=== PATIENT | male | born 1950 | race Caucasian/White ===

== ENCOUNTER 2020-08-25 06:50 | Observation (INO) | payer MEDICARE, OTHER ==
[~2020-08-25] VITALS: Ht 180.3 cm; Wt 98.1 kg
[2020-08-25] MEDS ORDERED: NS IV 1000 ML 1,000 ML IV SCH (07:03)
[2020-08-25] MEDS ORDERED: ANTACID SUSP 30 ML UDC (MYLANTA) PO STA (07:09)
[2020-08-25] MEDS ORDERED: LIDOCAINE 2% VISCOUS 15 ML UDC PO STA (07:09)
[2020-08-25] MEDS ORDERED: PANTOPRAZOLE 40 MG (PROTONIX) VIAL IV STA (07:09)
[2020-08-25] MEDS ORDERED: ONDANSETRON 4 MG/2 ML (SDV) Z0FRAN IV ONE (07:15)
[2020-08-25 07:20] LABS: HEMATOCRIT 44 % (40-54); HEMOGLOBIN 14.6 G/DL (13.3-17.7); MEAN CORPUSCULAR HEMOGLOBIN 31 PG (25-34); MEAN CORPUSCULAR HGB CONC 33 G/DL (32-36); MEAN CORPUSCULAR VOLUME 92 FL (80-99); MEAN PLATELET VOLUME 10.8 FL (7.4-10.4); NEUTROPHILS % (AUTO) 67 % (42-75); PLATELET COUNT 220 10^3/uL (130-400); WHITE BLOOD COUNT 6.2 10^3/uL (4.3-11.0)
[2020-08-25 07:21] LABS: BASOPHILS % (AUTO) 0 % (0-10); EOSINOPHILS % (AUTO) 0 % (0-10); LYMPHOCYTES # (AUTO) 1.5 X 10^3 (1.0-4.0); LYMPHOCYTES % (AUTO) 24 % (12-44); MONOCYTES # (AUTO) 0.5 X 10^3 (0.0-1.0); MONOCYTES % (AUTO) 9 % (0-12); NEUTROPHILS # (AUTO) 4.2 X 10^3 (1.8-7.8)
--- NOTE | 2020-08-25 07:25 | ED General ---
General Chief Complaint: Abdominal/GI Problems Stated Complaint: FEVER Nursing Triage Note: Patient is brought in via EMS for epigastric burning and a sour taste in his mouth. Patient states that his is Covid 19 positive. Patient does have some symptoms but has no acute complaints with those. Nursing Sepsis Screen: No Definite Risk Source of Information: Patient, EMS History of Present Illness Date Seen by Provider: Aug 25, 2020 Time Seen by Provider: 06:50 Initial Comments 70-year-old male presenting by EMS with complaints of mild shortness of breath, epigastric burning that has been intermittent and a sour taste in his mouth. He states that this is been going on for over a week now. His was just admitted to the hospital in [place] last night for Covid-19. This morning he felt like he was doing a little worse and was not improving so he called EMS. He follows with Dr. Rios out of [place]. He has a history of diabetes and hy pertension. He has had a mild cough and is more short of breath with exertion. He has had subjective fever and chills. He reports that he has not been eating and drinking as well because of feeling so poorly Allergies and Home Medications Allergies Coded Allergies: No Known Drug Allergies (Unverified , 08/25/20) Patient Home Medication List Home Medication List Reviewed: Yes Review of Systems Review of Systems Constitutional: chills, fever (subjective), malaise, weakness (generalized) EENTM: nose congestion (mild); No ear pain, No epistaxis Respiratory: cough (mild), dyspnea on exertion, short of breath (mild) Cardiovascular: No chest pain, No palpitations Gastrointestinal: abdominal pain (burning epigastric pain that is intermittent); No constipation, No diarrhea; nausea; No vomiting Genitourinary: No dysuria; other (decreased urine output) Musculoskeletal: other (generalized muscle aching) Skin: No rash Psychiatric/Neurological: Denies Numbness, Denies Paresthesia Hematologic/Lymphatic: No Symptoms Reported Immunological/Allergic: no symptoms reported Past Nwvrvpr-Xbmnxu-Jckxdf Hx Past Med/Social Hx: Reviewed Nursing Past Med/Soc Hx Patient Social History Alcohol Use: Denies Use Recreational Drug Use: No Smoking Status: Never a Smoker Recent Foreign Travel: No Contact w/Someone Who Travel: No Recent Infectious Disease Expo: No Physical Abuse: No Sexual Abuse: No Mistreated: No Fear: No Past Medical History Surgeries: Yes Orthopedic Respiratory: No Cardiac: Yes Hypertension Neurological: No Genitourinary: No Gastrointestinal: No Musculoskeletal: No Endocrine: Yes Diabetes, Insulin dep HEENT: No Cancer: No Psychosocial: No Integumentary: No Physical Exam Vital Signs Vital Signs - First Documented 08/25/20 08/25/20 06:50 09:55 Temp 36.9 Pulse 73 Resp 15 B/P (MAP) 179/74 (109) Pulse Ox 96 O2 Delivery Room Air O2 Flow Rate 2.00 Capillary Refill : Less Than 3 Seconds Height, Weight, BMI Height: '" Weight: lbs. oz. kg; 30.00 BMI Method: General Appearance: WD/WN, Mild Distress HEENT: PERRL/EOMI; No Moist Mucous Membranes (slightly dry mucous membranes) Neck: Full Range of Motion, Normal Inspection, Non Tender, Supple Respiratory: Chest Non Tender, No Accessory Muscle Use, No Respiratory Distress, Decreased Breath Sounds, Rhonci (in the bases) Cardiovascular: Regular Rate, Rhythm, No Edema, Normal Peripheral Pulses Gastrointestinal: Normal Bowel Sounds, No Pulsatile Mass, Non Tender, Soft Rectal: Deferred Back: Normal Inspection, No CVA Tenderness Extremity: Normal Capillary Refill, Normal Range of Motion, Non Tender, No Pedal Edema Neurologic/Psychiatric: Alert, Oriented x3, No Motor/Sensory Deficits, 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 II- 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 Norm as Tested Skin: Normal Color, Warm/Dry Focused Exam Lactate Level 08/25/20 06:55: Lactic Acid Level 1.53 Lactic Acid Level Laboratory Tests Test 08/25/20 06:55 Lactic Acid Level 1.53 MMOL/L (0.50-2.00) Progress/Results/Core Measures Suspected Sepsis Recent Fever Within 48 Hours: No Infection Criteria Present: None New/Unexplained Altered Menta: No Sepsis Screen: No Definite Risk SIRS Temperature: Pulse: 73 Respiratory Rate: 15 Laboratory Tests 08/25/20 06:55: White Blood Count 6.2 Blood Pressure 179 /74 Mean: 109 08/25/20 06:55: Lactic Acid Level 1.53 Laboratory Tests 08/25/20 06:55: Creatinine 1.02, INR Comment 1.0, Platelet Count 220, Total Bilirubin 0.5 Results/Orders Lab Results Laboratory Tests Test 08/25/20 06:55 08/25/20 07:35 10/9/20 09:50 Range/Units White Blood Count 6.2 4.3-11.0 10^3/uL Red Blood Count 4.76 4.35-5.85 10^6/uL Hemoglobin 14.6 13.3-17.7 G/DL Hematocrit 44 40-54 % Mean Corpuscular Volume 92 80-99 FL Mean Corpuscular Hemoglobin 31 25-34 PG Mean Corpuscular Hemoglobin Concent 33 32-36 G/DL Red Cell Distribution Width 13.2 10.0-14.5 % Platelet Count 220 130-400 10^3/uL Mean Platelet Volume 10.8 H 7.4-10.4 FL Immature Granulocyte % (Auto) 0 % Neutrophils (%) (Auto) 67 42-75 % Lymphocytes (%) (Auto) 24 12-44 % Monocytes (%) (Auto) 9 0-12 % Eosinophils (%) (Auto) 0 0-10 % Basophils (%) (Auto) 0 0-10 % Neutrophils # (Auto) 4.2 1.8-7.8 X 10^3 Lymphocytes # (Auto) 1.5 1.0-4.0 X 10^3 Monocytes # (Auto) 0.5 0.0-1.0 X 10^3 Eosinophils # (Auto) 0.0 0.0-0.3 10^3/uL Basophils # (Auto) 0.0 0.0-0.1 10^3/uL Immature Granulocyte # (Auto) 0.0 0.0-0.1 10^3/uL Prothrombin Time 13.7 12.2-14.7 SEC INR Comment 1.0 0.8-1.4 Activated Partial Thromboplast Time 34 24-35 SEC Sodium Level 134 L 135-145 MMOL/L Potassium Level 4.5 3.6-5.0 MMOL/L Chloride Level 98 98-107 MMOL/L Carbon Dioxide Level 24 21-32 MMOL/L Anion Gap 12 5-14 MMOL/L Blood Urea Nitrogen 19 H 7-18 MG/DL Creatinine 1.02 0.60-1.30 MG/DL Estimat Glomerular Filtration Rate > 60 BUN/Creatinine Ratio 19 Glucose Level 269 H 70-105 MG/DL Lactic Acid Level 1.53 0.50-2.00 MMOL/L Calcium Level 9.1 8.5-10.1 MG/DL Corrected Calcium 9.3 8.5-10.1 MG/DL Total Bilirubin 0.5 0.1-1.0 MG/DL Aspartate Amino Transf (AST/SGOT) 31 5-34 U/L Alanine Aminotransferase (ALT/SGPT) 20 0-55 U/L Alkaline Phosphatase 92 40-136 U/L Troponin I < 0.30 <0.30 NG/ML C-Reactive Protein 0.97 H <0.50 MG/DL Pro-B-Type Natriuretic Peptide 133.1 H <75.0 PG/ML Total Protein 7.2 6.4-8.2 GM/DL Albumin 3.7 3.2-4.5 GM/DL Lipase 25 8-78 U/L Blood Gas Puncture Site RT RAD Blood Gas Patient Temperature 36.8 Arterial Blood pH 7.52 H 7.37-7.43 Arterial Blood Partial Pressure CO2 32 L 35-45 MMHG Arterial Blood Partial Pressure O2 64 L 79-93 MMHG Arterial Blood HCO3 26 23-27 MMOL/L Arterial Blood Total CO2 27.1 21.0-31.0 MMOL/L Arterial Blood Oxygen Saturation 94 94-100 % Arterial Blood Base Excess 3.6 H -2.5-2.5 MMOL/L Shad Test YES-POS Blood Gas Ventilator Setting NO Blood Gas Inspired Oxygen ROOM AIR Glucometer 175 H 70-110 MG/DL Micro Results Microbiology 08/25/20 Influenza Types A,B Antigen (MITRA) - Final, Complete My Orders Orders - MARGAUX MCDANIEL MD Vital Signs: Hourly (Order) (08/25/20 07:03) Monitor-Rhythm Ecg Trace Only (08/25/20 07:03) Ed Iv/Invasive Line Start (08/25/20 07:03) Cbc With Automated Diff (08/25/20 07:03) Comprehensive Metabolic Panel (08/25/20 07:03) Crp Fs (08/25/20 07:03) Troponin I Fs (08/25/20 07:03) Protime With Inr (08/25/20 07:03) Partial Thromboplastin Time (08/25/20 07:03) Ekg Tracing (08/25/20 07:03) Arterial Blood Gas (08/25/20 07:03) Ns Iv 1000 Ml (Sodium Chloride 0.9%) (08/25/20 07:03) Ondansetron Injection (Zofran Injectio (08/25/20 07:15) Oxygen Delivery Set Up (08/25/20 07:03) Oxygen-Administer DAILY (08/25/20 07:03) Blood Culture (08/25/20 07:03) Lipase (08/25/20 07:03) Probnp Fs (08/25/20 07:03) Lactic Acid Analyzer (08/25/20 07:03) Chest 1 View Ap/Pa Only (08/25/20 07:08) Pantoprazole Injection (Protonix Injecti (08/25/20 07:09) Lidocaine 2% Viscous 15 Ml (Xylocaine Vi (08/25/20 07:09) Antacid Suspension (Mylanta Suspension (08/25/20 07:09) Influenza A And B Antigens (08/25/20 07:12) Ua Culture If Indicated (08/25/20 08:06) Dexamethasone Oral Soln (Ed) (Decadron I (08/25/20 08:35) Insulin (Regular) Human (Novolin R (Per (08/25/20 08:35) Ns Iv 1000 Ml (Sodium Chloride 0.9%) (08/25/20 09:08) Medications Given in ED Current Medications Medications Dose Ordered Sig/Jaimee Route Start Time Stop Time Status Last Admin Dose Admin Ondansetron HCl 4 mg ONCE ONCE IV 08/25/20 07:15 08/25/20 07:16 DC 08/25/20 07:48 4 MG Vital Signs/I&O 08/25/20 08/25/20 06:50 09:55 Temp 36.9 36.9 Pulse 73 78 Resp 15 18 B/P (MAP) 179/74 (109) 175/70 Pulse Ox 96 97 O2 Delivery Room Air Nasal Cannula O2 Flow Rate 2.00 Capillary Refill : Less Than 3 Seconds Blood Pressure Mean: 109 Progress Note #1: Progress Note Obtain labs, chest x-ray, flu swab, blood cultures and lactic acid. With his exposure to his having COVID will obtain the flu swab and COVID swab to evaluate for that. Since his room air oxygen saturation has fluctuated between 92 and 96% will obtain a blood gas to evaluate his oxygenation. Since he also has intermittent burning in his epigastric area and Sour taste in his mouth will try medication for possible reflux and acid indigestion. However with his diabetes and hypertension will obtain electrocardiogram and cardiac enzymes. He states he has not been drinking much fluids so will give IVF for hydration. Progress Note #2: Time: 08:17 Progress Note Labs show stable CBC. His chemistry shows elevation of his glucose. He does have an elevated CRP. His troponin was negative. His BUN was slightly elevated to 19. He does have a normal lipase and lactic acid. His ABG shows mild alkalosis of 7.53. His PCO2 was slightly low at 69. His chest x-ray was showing some infiltrate in the base of his lungs. On room air his O2 saturation does fluctuate from 92-96%. With his exposure to COVID with his being positive and daughter being positive, he likely is positive as well and contributing to his symptoms. 0828 d/w Dr. Dalton for hospitalist service since pt follows with Dr. Rios from [place]. Will give Decadron 6 mg po and a dose of insulin to help with his already elevated glucose. will give additional IVF since he has already had 1 L and not been able to provide a UA. ECG Initial ECG Impression Date: Aug 25, 2020 Initial ECG Impression Time: 07:23 Initial ECG Rate: 62 Initial ECG Rhythm: Normal Sinus Initial ECG Comparisson: No Previous ECG Available Comment Normal sinus rhythm with a heart rate of 62 bpm. There are atrial premature complexes. MO interval [address] elevation. No prior tracings for comparison. QT interval 420 ms with a QTc interval 427 ms. There is a left axis deviation. Diagnostic Imaging Diagonstic Imaging: Xray Plain Films/CT/US/NM/MRI: chest Comments [facility]. [place], [place] NAME: ANNA SMART [facility] REC#: [id number] PT STATUS: REG ER : 1950 PHYSICIAN: MARGAUX MCDANIEL MD ADMIT DATE: 08/25/20/ER FS Draft Date of Exam:08/25/20 CHEST 1 VIEW AP/PA ONLY CHEST 1 VIEW AP/PA ONLY INDICATION: Shortness of breath, exposure to Covid-19. COMPARISON: None available. FINDINGS: Right basilar hazy opacities are present. No consolidation. No pleural effusion or pneumothorax. Normal cardiomediastinal silhouette. IMPRESSION: 1. Right basilar ill-defined hazy opacities could be due to atelectasis or summation shadow. Alternatively, airspace disease from infection could also give this appearance. Dictated on workstation # [id number] Dict: 08/25/20725 Trans: 08/25/2035 [id number] Interpreted by: WILLARD COOK MD Electronically signed by: Departure Communication (Admissions) Time/Spoke to Admitting Phy: 08:28 d/w Dr. Dalton and will observation admit pt for COVID-19 symptoms and borderline dehydration. Will give Decadron 6 mg here and some insulin for his elevated glucose. Impression Primary Impression: Right lower lobe pulmonary infiltrate Additional Impressions: Dehydration Hyperglycemia due to type 1 diabetes mellitus Close exposure to COVID-19 virus Disposition: ADMITTED INPATIENT Condition: Stable Admissions Decision to Admit Reason: Admit from ER (General) Decision to Admit/Date: Aug 25, 2020 Time/Decision to Admit Time: 08:28 MARGAUX MCDANIEL MD Aug 25, 2020 07:25
[2020-08-25 07:30] LABS: PROTHROMBIN TIME PATIENT 13.7 SEC (12.2-14.7)
--- NOTE | 2020-08-25 07:36 | Diagnostic Imaging Report ---
CHEST 1 VIEW AP/PA ONLY INDICATION: Shortness of breath, exposure to Covid-19. COMPARISON: None available. FINDINGS: Right basilar hazy opacities are present. No consolidation. No pleural effusion or pneumothorax. Normal cardiomediastinal silhouette. IMPRESSION: 1. Right basilar ill-defined hazy opacities could be due to atelectasis or summation shadow. Alternatively, airspace disease from infection could also give this appearance. Dictated by: Dictated on workstation # [id number]
[2020-08-25 07:42] LABS: ABG BASE EXCESS 3.6 MMOL/L (-2.5-2.5); ABG PCO2 32 MMHG (35-45); ABG PH 7.52 (7.37-7.43); ABG PO2 64 MMHG (79-93); ABG TCO2 27.1 MMOL/L (21.0-31.0)
[2020-08-25 07:43] LABS: ABG OXYGEN SATURATION 94 % (94-100); ALLENS TEST YES-POS; INSPIRED O2 ROOM AIR; PATIENT TEMP 36.8; VENTILATOR NO
[2020-08-25 07:44] LABS: BUN/CREATININE RATIO 19; CARBON DIOXIDE 24 MMOL/L (21-32); CHLORIDE 98 MMOL/L (98-107); CREATININE SERUM 1.02 MG/DL (0.60-1.30); GFR ESTIMATED > 60; POTASSIUM 4.5 MMOL/L (3.6-5.0); SODIUM 134 MMOL/L (135-145)
[2020-08-25 07:45] LABS: ALANINE AMINOTRANSFERASE 20 U/L (0-55); ALBUMIN 3.7 GM/DL (3.2-4.5); ALKALINE PHOSPHATASE 92 U/L (40-136); BILIRUBIN,TOTAL 0.5 MG/DL (0.1-1.0); CALCIUM 9.1 MG/DL (8.5-10.1); GLUCOSE 269 MG/DL (70-105); TOTAL PROTEIN 7.2 GM/DL (6.4-8.2)
[2020-08-25] MEDS ORDERED: inSUlin (REGULAR) HUMAN 1 UNIT/0.01 ML (CHARGE PER UNIT) SC STA (08:35)
[2020-08-25] MEDS ORDERED: NS IV 1000 ML 1,000 ML IV STA (09:08)
[2020-08-25 11:00] VITALS: BP 190/82
[2020-08-25] MEDS: NS IV 1000 ML 1,000 ML IV SCH ×2 (11:30→19:29)
[2020-08-25] MEDS ORDERED: FLU QUAD HIGH DOSE 240 MCG/0.7 ML 2020-21 (FLUZONE) IM ONE (11:45)
[2020-08-25 11:56] VITALS: BP 190/82
[2020-08-25] MEDS ORDERED: ENOXAPARIN 40 MG/0.4 ML (LOVENOX) SYR SC SCH ×2 (12:00→16:00)
[2020-08-25] MEDS ORDERED: guaiFENesin SYRUP 100 MG/5 ML 10 ML (ROBITUSSIN SF) PO PRN (12:00)
[2020-08-25] MEDS ORDERED: ACETAMINOPHEN 325 MG TABLET PO PRN ×2 (12:00→16:00)
[2020-08-25 15:02] VITALS: BP 179/74
--- NOTE | 2020-08-25 15:44 | History & Physical-Hospitalist ---
History of Present Illness HPI/Chief Complaint Pt is a 70yoCM with a PMH of IDDMII who presented to the ER due to abdominal pain, weakness, and mild shortness of breath. He has been sick for a week and his was just admitted to the ER due to COVID and he is very anxious about this and even tearful. He states he doesn't think he has had a fever but he has been feeling very warm and sweaty lately. He thought he was worsening this morning in his ability to get around due to weakness so called EMS to bring him to the ER for evaluation. He reports that he was able to eat lunch since getting up here and it already feeling better though. Source: patient Date Seen 08/25/20 Time Seen by a Provider: 15:37 Attending Physician Milli Dalton MD PCP Referring Physician Date of Admission Aug 25, 2020 at 10:46 Home Medications & Allergies Home Medications Reviewed patient Home Medication Reconciliation performed by pharmacy medication reconciliations automation technician and/or nursing. Patients Allergies have been reviewed. Allergies Allergies Coded Allergies No Known Drug Allergies (Dfjxddnzcv59/9/20) Past Anuryka-Toyghh-Iluctv Hx Past Med/Social Hx: Reviewed Nursing Past Med/Soc Hx Patient Social History Alcohol Use: Denies Use Recreational Drug Use: No Smoking Status: Never a Smoker Recent Foreign Travel: No Contact w/other who traveled: No Recent Infectious Disease Expo: No Immunizations Up To Date Date of Pneumonia Vaccine: Aug 25, 2017 Date of Influenza Vaccine: Aug 25, 2019 Past Medical History Surgeries: Orthopedic Cardiac: Hypertension Endocrine: Diabetes, Insulin dep Family History Diabetes mellitus 19 FATHER 19 MOTHER Stomach cance 19 FATHER Review of Systems Constitutional: fever, malaise, weakness EENTM: No hoarseness, No nose congestion Respiratory: No cough; dyspnea on exertion, short of breath Cardiovascular: No chest pain, No palpitations Gastrointestinal: abdominal pain, nausea Genitourinary: No dysuria, No frequency Musculoskeletal: muscle weakness Skin: no symptoms reported Psychiatric/Neurological: No Symptoms Reported Physical Exam Physical Exam Vital Signs Vital Signs - First Documented 08/25/20 08/25/20 08/25/20 06:50 09:55 15:02 Temp 36.9 Pulse 73 Resp 15 B/P (MAP) 179/74 (109) Pulse Ox 96 O2 Delivery Room Air O2 Flow Rate 2.00 FiO2 21 Capillary Refill : Less Than 3 Seconds Height, Weight, BMI Height: '" Weight: lbs. oz. kg; 30.17 BMI Method: General Appearance: No Apparent Distress, WD/WN, Anxious HEENT: PERRL/EOMI, Moist Mucous Membranes; No Scleral Icterus (L), No Scleral Icterus (R) Neck: Normal Inspection, Supple Respiratory: Lungs Clear, No Accessory Muscle Use, No Respiratory Distress Cardiovascular: Regular Rate, Rhythm, No Murmur Gastrointestinal: Normal Bowel Sounds, Non Tender, Soft Extremity: Normal Capillary Refill, No Calf Tenderness, No Pedal Edema Neurologic/Psychiatric: Alert, Oriented x3, Normal Mood/Affect, Other (appropriately tearful) Skin: Normal Color, Warm/Dry Results Results/Procedures Labs Laboratory Tests 08/25/20 06:55 Patient resulted labs reviewed. Imaging: Reviewed Imaging Report [facility] [place] [place] NAME: ANNA SMART [facility] REC#: [id number] PT STATUS: REG ER : 1950 PHYSICIAN: MARGAUX MCDANIEL MD ADMIT DATE: 08/25/20/ER FS Signed Date of Exam:08/25/20 CHEST 1 VIEW AP/PA ONLY CHEST 1 VIEW AP/PA ONLY INDICATION: Shortness of breath, exposure to Covid-19. COMPARISON: None available. FINDINGS: Right basilar hazy opacities are present. No consolidation. No pleural effusion or pneumothorax. Normal cardiomediastinal silhouette. IMPRESSION: 1. Right basilar ill-defined hazy opacities could be due to atelectasis or summation shadow. Alternatively, airspace disease from infection could also give this appearance. Dictated by: Dictated on workstation # [id number] Dict: 08/25/20725 Trans: 08/25/2044 [id number] Interpreted by: WILLARD COOK MD Electronically signed by: WILLARD COOK MD 08/25/2044 Assessment/Plan Admission Diagnosis COVID19 Admission Status: Observation Assessment and Plan COVID19 generalized weakness IVF Decadron Discussed EUA meds and he would like to wait until tomorrow to see how he is doing MAT protocol IS Unsure of true oxygen need, wean as able IDDMI Reports he states 72U Tresiba in the AM Sliding scale B for prandial DVT ppx: Lovenox Diagnosis/Problems Diagnosis/Problems (1) Right lower lobe pulmonary infiltrate Status: Acute (2) Hyperglycemia due to type 1 diabetes mellitus Status: Acute (3) Hypertension Clinical Quality Measures DVT/VTE Risk/Contraindication: Risk Factor Score Per Nursin RFS Level Per Nursing on Admit: 1=Low/No VTE PPX MILLI DALTON MD Aug 25, 2020 15:44
[2020-08-25 16:00] VITALS: BP 163/77
[2020-08-25] MEDS ORDERED: MILK OF MAGNESIA 400 MG/5 ML 30 ML UDC PO PRN (16:00)
[2020-08-25] MEDS ORDERED: ANTACID SUSP 30 ML UDC (MYLANTA) PO PRN (16:00)
[2020-08-25] MEDS ORDERED: ONDANSETRON 4 MG/2 ML (SDV) Z0FRAN IV PRN (16:00)
[2020-08-25] MEDS ORDERED: BENZONATATE 100 MG (TESSALON) CAPSULE PO PRN (16:00)
[2020-08-25] MEDS ORDERED: MELATONIN 3 MG TABLET PO PRN (16:00)
--- NOTE | 2020-08-25 16:19 | NUR ---
I received request that this pt wanted a prayer said over phone for his (pt in ICU, 4). PCT took phone into room on speaker and this Health Program Specialist said pray for pt and her and family.
[2020-08-25] MEDS: inSUlin ASPART (NovoLOG) 1 UNIT/0.01 ML (CHARGE PER UNIT) SC SCH ×2 (17:04→20:40)
[2020-08-25] MEDS ORDERED: RT-ALBUTEROL INHALER HFA (VENTOLIN HFA) 18 GM IH SCH (18:00)
[2020-08-25 19:45] VITALS: BP 167/74
[2020-08-25] MEDS ORDERED: LISI10TA2 PO ×2 (21:40)
[2020-08-25] MEDS ORDERED: ASPI-1238 PO ×2 (21:40)
[2020-08-25] MEDS ORDERED: ALLO300T2 PO ×2 (21:41)
[2020-08-25] MEDS ORDERED: INSU100V37 SQ ×2 (21:42)
[2020-08-25] MEDS ORDERED: INSU100V16 SQ ×2 (21:45)
--- NOTE | 2020-08-25 21:58 | NUR ---
CALLED AND NOTIFIED DR PALUMBO THAT PT HAD TAKEN 20 UNITS OF HOME MED NOVOLOG PRIOR TO EATING SUPPER. BS AT THAT TIME OF 190. BS THIS DIANNE OF 197. PT STATED AT HOME HE WOULD NORMALLY TAKE 15 UNITS. ORDERED, SLIDING SCALE B CALLED FOR 4 UNITS OF INSULIN. PT REFUSED 4 UNITS OF INSULIN, INSULIN WAS NON-ADMINISTERED. DR PALUMBO ORDERED 1 TIME DOSE OF 10 UNITS NOVOLOG AND TO USE PT HOME MED INSULIN. DR PALUMBO ALSO ORDERED THAT WE USE PTS HOME MED TRESIBA 72 UNITS DAILY IN THE AM. PT DOES NOT HAVE ALL OF HIS HOME MEDS WITH HIM, ONLY NOVOLOG AND TRESIBA FLEX-PEN.
[2020-08-25] MEDS: RT-ALBUTEROL INHALER HFA (VENTOLIN HFA) 18 GM IH PRN (22:13)
[2020-08-25] MEDS ORDERED: PATIENT MAY USE OWN MED,SINGLE MED PO SCH (22:15)
[2020-08-25] MEDS ORDERED: inSUlin ASPART (NovoLOG) 1 UNIT/0.01 ML (CHARGE PER UNIT) SC ONE (22:15)
[2020-08-26 00:34] VITALS: BP 131/61
[2020-08-26] MEDS: RT-ALBUTEROL INHALER HFA (VENTOLIN HFA) 18 GM IH PRN ×2 (02:52→11:19)
[2020-08-26 03:58] VITALS: BP 145/67
[2020-08-26 05:58] LABS: HEMOGLOBIN 13.8 g/dL (13.3-17.7); MEAN PLATELET VOLUME 11.1 fL (9.0-12.2); WHITE BLOOD COUNT 4.7 10^3/uL (4.3-11.0)
[2020-08-26 06:16] LABS: CHLORIDE 105 MMOL/L (98-107); POTASSIUM 4.1 MMOL/L (3.6-5.0); SODIUM 139 MMOL/L (135-145)
[2020-08-26 06:17] LABS: CALCIUM 8.3 MG/DL (8.5-10.1)
[2020-08-26 06:18] LABS: GLUCOSE 173 MG/DL (70-105)
[2020-08-26 06:19] LABS: CARBON DIOXIDE 21 MMOL/L (21-32)
[2020-08-26 06:22] LABS: CREATININE SERUM 1.06 MG/DL (0.60-1.30); GFR ESTIMATED > 60
[2020-08-26 06:23] LABS: BUN/CREATININE RATIO 19
[2020-08-26] MEDS: inSUlin ASPART (NovoLOG) 1 UNIT/0.01 ML (CHARGE PER UNIT) SC SCH ×2 (06:26→11:22)
[2020-08-26 08:00] VITALS: BP 177/81
[2020-08-26] MEDS ORDERED: FLU QUAD HIGH DOSE 240 MCG/0.7 ML 2020-21 (FLUZONE) IM ONE (08:00)
[2020-08-26] MEDS: NS IV 1000 ML 1,000 ML IV SCH (08:19)
[2020-08-26] MEDS ORDERED: INSULIN DEGLUDEC 72 UNIT SQ SCH (09:00)
[2020-08-26] MEDS ORDERED: dexAMETHasone 6 MG TAB (DECADRON) PO SCH (09:00)
--- NOTE | 2020-08-26 09:31 | NUR ---
Dr Dalton notified of increased BP.
[2020-08-26] MEDS ORDERED: lisINopril 20 MG (PRINIVIL) TABLET PO NR (09:45)
--- NOTE | 2020-08-26 10:41 | NUR ---
PHARMACY CALLED FOR HOME MEDS
[2020-08-26] MEDS ORDERED: DEXA6TAB PO ×2 (11:12)
--- NOTE | 2020-08-26 11:13 | Discharge Inst-Simple/Standard ---
Discharge Inst-Standard Reconcile Patient Problems Problems Reviewed?: Yes Discharge Medications New, Converted or Re-Newed RX: Transmitted to Pharmacy Patient Instructions/Follow Up Plan of Care/Instructions/FU: Please continue to take your medications as written. Please follow up with your primary care doctor to follow up this hospital stay. Activity as Tolerated: Yes Discharge Diet: ADA Diet Return to The Hospital For: Chest pain, shortness of breath, abdominal pain, nausea or vomiting, if you feel you are getting worse. MILLI PALUMBO MD Aug 26, 2020 11:13
--- NOTE | 2020-08-26 11:45 | Discharge Summary ---
Diagnosis/Chief Complaint Date of Admission Aug 25, 2020 at 10:46 Date of Discharge Discharge Date: Aug 26, 2020 Admission Diagnosis COVID19 Primary Care Discharge Diagnosis (1) Right lower lobe pulmonary infiltrate Status: Acute (2) Hyperglycemia due to type 1 diabetes mellitus Status: Acute (3) Hypertension Discharge Summary Discharge Physical Exam Allergies: Coded Allergies: No Known Drug Allergies (Unverified , 08/25/20) Vitals & I&Os Vital Signs Date Time Temp Pulse Resp B/P (MAP) Pulse Ox O2 Delivery O2 Flow Rate FiO2 08/26/20 11:19 93 Room Air 08/26/20 08:00 36.4 56 20 177/81 (113) 08/25/20 16:00 0.50 08/25/20 15:02 21 Hospital Course Labs (last 24 hrs) Laboratory Tests 08/25/20 12:00: Coronavirus 2019 (REY) PositiveH 08/25/20 17:02: Glucometer 190H 08/25/20 20:33: Glucometer 197H 08/26/20 05:45: White Blood Count 4.7, Red Blood Count 4.47, Hemoglobin 13.8, Hematocrit 41, Mean Corpuscular Volume 92, Mean Corpuscular Hemoglobin 31, Mean Corpuscular Hemoglobin Concent 33, Red Cell Distribution Width 13.0, Platelet Count 231, Mean Platelet Volume 11.1, Sodium Level 139, Potassium Level 4.1, Chloride Level 105, Carbon Dioxide Level 21, Anion Gap 13, Blood Urea Nitrogen 20H, Creatinine 1.06, Estimat Glomerular Filtration Rate > 60, BUN/Creatinine Ratio 19, Glucose Level 173H, Calcium Level 8.3L, Procalcitonin 0.04 08/26/20 10:55: Glucometer 219H Microbiology 08/25/20 Influenza Types A,B Antigen (MITRA) - Final, Complete Patient resulted labs reviewed. Pending Labs Laboratory Tests 08/26/20 05:45: White Blood Count 4.7, Red Blood Count 4.47, Hemoglobin 13.8, Hematocrit 41, Mean Corpuscular Volume 92, Mean Corpuscular Hemoglobin 31, Mean Corpuscular Hemoglobin Concent 33, Red Cell Distribution Width 13.0, Platelet Count 231, Mean Platelet Volume 11.1, Sodium Level 139, Potassium Level 4.1, Chloride Level 105, Carbon Dioxide Level 21, Anion Gap 13, Blood Urea Nitrogen 20, Creatinine 1.06, Estimat Glomerular Filtration Rate > 60, BUN/Creatinine Ratio 19, Glucose Level 173, Calcium Level 8.3, Procalcitonin 0.04 08/26/20 10:55: Glucometer 219 Imaging: Reviewed Imaging Report Discharge Home Medications: Active Scripts Active Dexamethasone 6 Mg Tablet 6 Mg PO DAILY Reported Novolog (Insulin Aspart) 100 Unit/1 Ml Susp 0 SQ ACHS CHECKS BS ACHS AND TAKES INSULIN PER CARBS CONSUMED Tresiba (Insulin Degludec) 100 Unit/1 Ml Vial 72 Unit SQ DAILY Allopurinol 300 Mg Tablet 300 Mg PO DAILY Aspirin EC (Aspirin) 81 Mg Tablet.dr 81 Mg PO DAILY Lisinopril 10 Mg Tablet 20 Mg PO DAILY Instructions to patient/family Please see electronic discharge instructions given to patient. Clinical Quality Measures DVT/VTE Risk/Contraindication: Risk Factor Score Per Nursin RFS Level Per Nursing on Admit: 1=Low/No VTE PPX MILLI PALUMBO MD Aug 26, 2020 11:45
[2020-08-26 12:00] VITALS: BP 184/79
--- NOTE | 2020-08-26 12:47 | NUR ---
PIV REMOVED, DC INSTRUCTIONS GIVEN. PT VERBALIZED UNDERSTANDING OF ALL TEACHING, QUESTION ANSWERED. PRESCRIPTIONS SENT TO PHARMACY, 1 WEEK F/U APPOINTMENT GIVEN. PT AWAITING RIDE FROM HOME AT THIS TIME.
[2020-08-26 13:14] VITALS: BP 184/79
--- NOTE | 2020-08-26 13:15 | NUR ---
ANNA SMART demonstrates understanding of discharge instructions and accurately returns instructions upon questioning. Copy of Post-Discharge Instructions and Medication Discharge Instructions given to PT. ANNA SMART is able to manage continuing needs after discharge. Patients belongings returned to PT. Skin dry and intact; no breakdown noted. Patient discharged from 427-1 on at 1315. ANNA SMART left floor via WC, accompanied by STAFF.
[2020-08-26] MEDS ORDERED: TRESIBA 200 UNIT/ML SQ SCH (21:00)
[2020-08-27] MEDS ORDERED: lisINopril 20 MG (PRINIVIL) TABLET PO SCH (09:00)
== END 2020-08-26 13:15 | disposition home or self-care (01) ==
LOC: ER FS 06:53 → 4TH 10:46
PROVIDERS: ADMIT Family Medicine; ATTEND Family Medicine
DX: U07.1 COVID-19 (principal); I10 Essential (primary) hypertension; R91.8 Other nonspecific abnormal finding of lung field; E10.65 Type 1 diabetes mellitus with hyperglycemia; Z79.82 Long term (current) use of aspirin; Z79.899 Other long term (current) drug therapy; Z80.0 Family history of malignant neoplasm of digestive organs
CPT/HCPCS: 36415; 71045; 80048; 80053; 82805; 82962 ×2; 83605; 83690; 83880; 84145; 84484; 85025; 85027; 85610; 85730; 86141; 87040; 87804 ×2; 93005; 93041; 94640 ×4; 94664 ×2; 94760 ×2; 99285; G0378; U0002; 87635

== ENCOUNTER 2020-08-28 11:16 | Emergency (ER) | payer MEDICARE, OTHER ==
[~2020-08-28 11:16] MED LIST: ALLO300T2 PO; ASPI-1238 PO; DEXA6TAB PO; INSU100V16 SQ; INSU100V37 SQ; LISI10TA2 PO
--- NOTE | 2020-08-28 12:00 | NUR ---
Attempted to call pt to be brought into ed. Pts phone number listed is no longer in service. Spoke with door screener who took info. Door screener stated that patient walked back out to his car and drove away.
== END 2020-08-28 12:00 | disposition left against medical advice (07) ==
LOC: EDUNIT# 11:16 → ER 11:18
DX: U07.1 COVID-19 (principal)